=== PATIENT | female | born 1980 ===

== ENCOUNTER 2023-04-14 11:00 | Inpatient (IN) | payer OTHER ==
[~2023-04-14] VITALS: Ht 162.6 cm; Wt 113.4 kg
[2023-04-14] MEDS ORDERED: COZAAR100 MG PO (15:35)
[2023-04-14] MEDS ORDERED: CARVEDILOL6.25 MG (15:35)
[2023-04-14] MEDS ORDERED: PROTONIX40 MG PO (15:35)
[2023-04-20] MEDS ORDERED: ST. JOSEPH ASPI81 M2 (11:45)
[2023-04-20] MEDS ORDERED: NORETHINDRONE AC5 MG (11:45)
[2023-04-22] MEDS ORDERED: GABAPENTIN300 MG PO (14:29)
[2023-04-22] MEDS ORDERED: INTEGRA PLUS C1 EACH PO (14:30)
[2023-04-22] MEDS ORDERED: ACETAMINOPHEN500 M2 PO (14:30)
== END 2023-04-22 20:33 | disposition home or self-care (01) | DRG 743 ==
LOC: ADM 12:00 → EDSTATUS 12:00 → SURG 04-20 07:00 → O/R 04-20 10:00 → SURG 04-20 12:00 → SURH 04-20 19:21 → SURG 04-20 22:03 → SURH 04-22 14:04
PROVIDERS: Internal Medicine Geriatric Medicine; Obstetrics & Gynecology Gynecology; ADMIT Surgery; ATTEND Surgery
PROC: 0UT24ZZ Resection of Bilateral Ovaries, Percutaneous Endoscopic Approach (ICD-10-PCS; 2023-04-20)
PROC: 0DNW4ZZ Release Peritoneum, Percutaneous Endoscopic Approach (ICD-10-PCS; 2023-04-20)
PROC: 0TN74ZZ Release Left Ureter, Percutaneous Endoscopic Approach (ICD-10-PCS; 2023-04-20)
PROC: 0TN64ZZ Release Right Ureter, Percutaneous Endoscopic Approach (ICD-10-PCS; 2023-04-20)
PROC: 0DN84ZZ Release Small Intestine, Percutaneous Endoscopic Approach (ICD-10-PCS; 2023-04-20)
PROC: 0DJD8ZZ Inspection of Lower Intestinal Tract, Via Natural or Artificial Opening Endoscopic (ICD-10-PCS; 2023-04-20)
PROC: 0UT94ZZ Resection of Uterus, Percutaneous Endoscopic Approach (ICD-10-PCS; principal; 2023-04-20 07:00)
PROC: 0UT74ZZ Resection of Bilateral Fallopian Tubes, Percutaneous Endoscopic Approach (ICD-10-PCS; 2023-04-20 07:00)
DX: N80.03 Adenomyosis of the uterus (principal); N80.00 Endometriosis of the uterus, unspecified; N80.103 Endometriosis of bilateral ovaries, unspecified depth; N73.6 Female pelvic peritoneal adhesions (postinfective); Z20.822 Contact with and (suspected) exposure to COVID-19